=== PATIENT | female | born 1995 | race Two or more races ===

== ENCOUNTER → 2020-07-05 | Outpatient (CLI) | payer OTHER | END | disposition home or self-care (01) | LOC: PPH VACUNA 09:00 | DX: Z23 Encounter for immunization (principal) ==

== ENCOUNTER 2021-07-11 17:28 | Emergency (ER) | payer OTHER ==
[~2021-07-11] VITALS: Ht 149.9 cm; Wt 61.2 kg
[2021-07-11] MEDS ORDERED: TIROSINT25 MCG PO (17:32)
[2021-07-11] MEDS ORDERED: ZESTRIL10 M1 PO (17:32)
[2021-07-11] MEDS ORDERED: HYDROCHLOROTH12.5 MG PO (17:32)
[2021-07-11] MEDS ORDERED: CIPRO500 MG PO (23:18)
== END 2021-07-12 00:12 | disposition home or self-care (01) ==
LOC: ER 17:28
DX: N39.0 Urinary tract infection, site not specified (principal); R06.02 Shortness of breath; Z03.818 Encounter for observation for suspected exposure to other biological agents ruled out; I10 Essential (primary) hypertension; E03.9 Hypothyroidism, unspecified; R07.89 Other chest pain

== ENCOUNTER 2021-07-16 08:00 | Outpatient (CLI) | payer OTHER ==
[~2021-07-16 08:00] MED LIST: CIPRO500 MG PO; HYDROCHLOROTH12.5 MG PO; TIROSINT25 MCG PO; ZESTRIL10 M1 PO
== END 2021-07-16 08:30 | disposition home or self-care (01) ==
LOC: PPH VACUNA 08:00
PROVIDERS: ATTEND Emergency Medicine Pediatric Emergency Medicine
DX: Z23 Encounter for immunization (principal)

== ENCOUNTER 2021-10-24 14:50 | Outpatient (CLI) | payer OTHER | END 2021-10-24 14:55 | disposition home or self-care (01) | LOC: PPH VACUNA 14:50 | PROVIDERS: ATTEND Emergency Medicine Pediatric Emergency Medicine | DX: Z23 Encounter for immunization (principal) ==

== ENCOUNTER 2022-01-11 14:29 | Emergency (ER) | payer OTHER ==
[~2022-01-11] VITALS: Ht 149.9 cm; Wt 61.7 kg
== END 2022-01-11 16:36 | disposition home or self-care (01) ==
LOC: ER 14:29
DX: H60.90 Unspecified otitis externa, unspecified ear (principal); H66.90 Otitis media, unspecified, unspecified ear; B96.89 Other specified bacterial agents as the cause of diseases classified elsewhere

== ENCOUNTER 2023-03-07 14:24 | Emergency (ER) | payer OTHER ==
[~2023-03-07] VITALS: Ht 152.4 cm; Wt 63.5 kg
== END 2023-03-07 16:51 | disposition home or self-care (01) ==
LOC: ER 14:24
DX: B34.9 Viral infection, unspecified (principal); Z20.822 Contact with and (suspected) exposure to COVID-19

== ENCOUNTER 2023-05-15 14:35 | Emergency (ER) | payer OTHER ==
[~2023-05-15] VITALS: Ht 152.4 cm; Wt 63.5 kg
[2023-05-15] MEDS ORDERED: ZOLOFT25 MG (14:44)
== END 2023-05-15 15:29 | disposition home or self-care (01) ==
LOC: ER 14:35
DX: T23.001A Burn of unspecified degree of right hand, unspecified site, initial encounter (principal); X17.XXXA Contact with hot engines, machinery and tools, initial encounter; Y93.9 Activity, unspecified; Y92.9 Unspecified place or not applicable; Y99.9 Unspecified external cause status

== ENCOUNTER 2023-10-30 07:00 | Emergency (ER) | payer OTHER ==
[~2023-10-30] VITALS: Ht 152.4 cm; Wt 61.7 kg
[~2023-10-30 07:00] MED LIST changes: +ZOLOFT25 MG
== END 2023-10-30 13:08 | disposition home or self-care (01) ==
LOC: ER 07:01
DX: M54.50 Low back pain, unspecified (principal)

== ENCOUNTER 2024-04-30 01:14 | Emergency (ER) | payer OTHER ==
[~2024-04-30] VITALS: Ht 152.4 cm; Wt 63.5 kg
[2024-04-30] MEDS ORDERED: CLINDAMYCIN PHOSPHATE 150 MG/ML (600mg) IM STA (02:35)
[2024-04-30] MEDS ORDERED: TETRACAINE HCL 20 DR/ML DROPS OP STA (02:36)
[2024-04-30] MEDS ORDERED: CLINDAMYCIN PHOSPHATE 150 MG/ML (300mg) ONE (02:41)
== END 2024-04-30 02:47 | disposition home or self-care (01) ==
LOC: ER 01:15
DX: H00.015 Hordeolum externum left lower eyelid (principal)

== ENCOUNTER 2025-03-03 08:21 | Emergency (ER) | payer OTHER ==
[~2025-03-03] VITALS: Ht 152.4 cm; Wt 68.0 kg
[2025-03-03] MEDS ORDERED: LEVALBUTEROL HCL 1.25 MG/3 ML SOLUTION IH STA (08:57)
[2025-03-03] MEDS ORDERED: METHYLPREDNISOLONE SOD SUCC 125 MG VIAL IV STA (08:57)
[2025-03-03] MEDS ORDERED: BUDESONIDE 0.5 MG/2 ML AMPUL.NEB IH STA (08:58)
[2025-03-03] MEDS ORDERED: HYDROCODONE/CHLORPHEN P-STIREX 5 ML ML PO STA (08:59)
[2025-03-03] MEDS ORDERED: METHYLPREDNISOLONE SOD SUCC 125 MG VIAL ONE (09:06)
[2025-03-03] MEDS ORDERED: LEVALBUTEROL HCL 0.63 MG/3 ML SOLUTION IH ONE (09:47)
[2025-03-03] MEDS ORDERED: IPRATROPIUM BROMIDE 0.5 MG/2.5 ML AMPUL.NEB IH ONE (09:47)
[2025-03-03 09:49] LABS: BASO % 0.4 % (0.1-1.2); EOS # 0.05 (0.04-0.54); EOS % 0.7 % (0.7-7.0); HEMATOCRIT 40.9 % (34.1-44.9); HEMOGLOBIN 14.2 g/dL (11.2-15.7); LYMPH # 0.96 (1.18-3.74); LYMPH % 13.8 % (19.3-53.1); MEAN CORPUSCULAR HEMOGLOBIN 30.2 pg (25.6-32.2); MONO # 0.87 (0.24-0.82); NEUT # 5.04 (1.56-6.13); NEUT % 72.3 % (34.0-71.1); PLATELET COUNT 232 K/uL (163-369); RED CELL DISTRIBUTION WIDTH 12.2 % (11.6-14.4)
[2025-03-03 10:00] LABS: MONO % 12.5 % (4.7-12.5)
[2025-03-03 10:14] LABS: INFLUENZA A AG NEGATIVE (NEGATIVE)
[2025-03-03 10:18] LABS: COVID-19 AG NEGATIVE (NEGATIVE)
== END 2025-03-03 10:32 | disposition home or self-care (01) ==
LOC: ER 08:21
PROVIDERS: General Practice
DX: J45.909 Unspecified asthma, uncomplicated (principal); R05.9 Cough, unspecified; Z20.822 Contact with and (suspected) exposure to COVID-19

== ENCOUNTER 2025-05-08 10:30 | Outpatient (CLI) | payer OTHER | END 2025-05-08 10:32 | disposition home or self-care (01) | LOC: SONOGRAMA 10:30 | PROVIDERS: ATTEND Pathology Anatomic Pathology & Clinical Pathology | DX: D34 Benign neoplasm of thyroid gland (principal); E07.89 Other specified disorders of thyroid; E04.1 Nontoxic single thyroid nodule ==

== ENCOUNTER 2025-08-03 08:16 | Outpatient (CLI) | payer OTHER | END 2025-08-03 08:26 | disposition home or self-care (01) | LOC: PPH VACUNA 08:16 | PROVIDERS: ATTEND Emergency Medicine Pediatric Emergency Medicine | DX: Z23 Encounter for immunization (principal) ==